=== PATIENT | female | born 1985 | race Caucasian/White ===

== ENCOUNTER → 2016-11-27 | Outpatient (CLI) | payer BC | END | disposition home or self-care (01) | LOC: C.PAPS 13:47 | PROVIDERS: ATTEND Obstetrics & Gynecology | DX: Z01.419 Encounter for gynecological examination (general) (routine) without abnormal findings (principal) ==

== ENCOUNTER → 2016-12-05 | Outpatient (CLI) | payer BC ==
--- NOTE | 2016-12-05 14:13 | MAMMOGRAPHY REPORT ---
ULTRASOUND OF LEFT BREAST: 12/05/2016 CLINICAL HISTORY: The patient reports that her physician felt a palpable left breast lump during a ro utine clinical exam. COMPARISON: No prior exams were available for comparison. TECHNIQUE: Real-time targeted ultrasound of the left breast was performed. FINDINGS: Real-time, high resolution targeted ultrasound was performed of the area of the palpable l ump pointed out by the patient, in the left breast at 11:30 periareolar region. Sonographically norm al tissue is seen in this region, without evidence of a mass or other suspicious sonographic abnormal ity. IMPRESSION: ACR BI-RADS CATEGORY 1: NEGATIVE No suspicious sonographic abnormality at the site of the palpable left breast lump pointed out by the patient. There is no sonographic evidence of malignancy. Recommend clinical follow-up for the palp able lump; any decision to biopsy should be based on clinical grounds. The patient was verbally notified of the results. Khadijah Petit M.D. ah/:12/05/2016 08:54:50 Attending Technologist: Angelina AGUIRRE(Jessee)(M), [facility] Senior Technical Support Engineer: Khadijah Petit MD, [facility] letter sent: Normal 1/2 BI-RADS Code: ACR BI-RADS Category 1: Negative
== END | disposition home or self-care (01) ==
LOC: C.MAMM 08:05
PROVIDERS: ATTEND Obstetrics & Gynecology
DX: N63 Unspecified lump in breast (principal)

== ENCOUNTER → 2017-03-27 | Outpatient (CLI) | payer BC ==
--- NOTE | 2017-03-28 14:34 | MAMMOGRAPHY REPORT ---
ULTRASOUND OF LEFT BREAST: 03/27/2017 CLINICAL HISTORY: The patient reports a new tender palpable lump in the left breast. The tenderness has decreased since her menstrual period. COMPARISON: Comparison is made to exam dated: 12/05/2016 ultrasound - [facility]. TECHNIQUE: Real-time targeted ultrasound of the left breast was performed. FINDINGS: Real-time, high-resolution targeted ultrasound was performed of the area of the palpable l ump pointed out by the patient, in the left breast at 6:00 approximately 3 cm from the nipple. Sonog raphically normal tissue is seen in this region, without evidence of a mass or other suspicious sonog raphic abnormality. IMPRESSION: ACR BI-RADS CATEGORY 1: NEGATIVE No suspicious sonographic abnormality at the site of the palpable lump in the left 6:00 breast pointe d out by the patient. There is no sonographic evidence of malignancy. Recommend clinical follow-up; any decision to biopsy should be based on clinical grounds. The patient was verbally notified of the results. Khadijah Petit M.D. ah/:03/27/2017 14:13:27 Casino Controller: Angelina CORONEL)(Lamin), [facility] letter sent: Normal 1/2 BI-RADS Code: ACR BI-RADS Category 1: Negative
== END | disposition home or self-care (01) ==
LOC: C.MAMM 13:41
PROVIDERS: ATTEND Obstetrics & Gynecology
DX: N63.20 Unspecified lump in the left breast, unspecified quadrant (principal)

== ENCOUNTER 2018-11-03 07:35 | Inpatient (IN) ==
[2018-11-03] MEDS ORDERED: PENICILLIN G POTASSIUM 6 MU in DEXTROSE 5% 250 ML IV STA (07:48)
[2018-11-03] MEDS ORDERED: OXYTOCIN 30 UNITS/500 ML BAG IV PRN ×3 (07:48→20:45)
[2018-11-03 08:18] LABS: Hematocrit (blood only) 40.2 % (37-47); Hemoglobin 13.9 g/dL (12.0-16.0); Mean Corpuscular Volume 86.8 fL (80-100); Platelet Count 220 K/uL (130-400); RDW Coefficient of Variation 15.3 % (11.5-14.5); Red Blood Count 4.63 M/uL (4.2-5.4); White Blood Count 10.37 K/uL (4.8-10.8)
[2018-11-03 08:25] LABS: Mean Corpuscular Hgb Conc 34.6 g/dL (32-36)
[2018-11-03] MEDS: LACTATED RINGER'S 1,000 ML IV PRN ×2 (08:32→14:37)
--- NOTE | 2018-11-03 08:53 | History & Physical Report ---
Date of Service November 03, 2018 Assessment & Plan (1) Encounter for induction of labor: Scheduled induction. Monitor status of mother and baby, consider epidural depending on cervical progress and mother's pain control. Category 1 heart tracing. Receiving pitocin drip, currently running at 6mU. Receiving penicillinG IV for GBS prophylaxis. Present on Admission?: Yes (2) Post term , 41 weeks: History of Present Illness Primary Care Provider: 33 yo F here at 41 weeks and 1 day verified by ultrasound on 03/07/18. Here for induction of labor for post-term . Has been attending all OB appointments, no issues or complications with thus far. Takes vitamins and iron supplementation. Took benadryl and tylenol for sleep last night. Contractions: Was experiencing intermittent cramping abdominal pain last night from 10:30 pm to 5 am. Fluid Loss: no rupture of fluids or vaginal blood loss Movement: frequent, good movement Labs Blood type: A+ Antibody screen: negative H.9 Hct: 40.2% WBC: 10.37 Plt: 220 Rubella: Immune VDRL/RPR: nonreactive HBsAg: negative Chlamydia: negative Gonorrhea: negative 1 hr GTT: negative Cell Free DNA screen: negative GBS: Positive urine Allergies Allergy/AdvReac Type Severity Reaction Status Date / Time No Known Allergies Allergy Verified 11/03/18 07:56 Home Medications Home Medications Medication Instructions Recorded Confirmed Type ferrous sulfate [Iron (ferrous 325 mg PO DAILY 11/03/18 11/03/18 History sulfate)] vit-iron fum-folic ac 1 tab PO DAILY 11/03/18 11/03/18 History [ Vitamin] Patient History Medical History H/O wisdom tooth extraction Surgical History History of surgery on arm Social History Preferred Language: Divehi Communication Ability: Effective Beliefs That Will Affect Care: None marital status: Current Living Situation: Spouse Other Information That Helps Us Care for You: No Feels Safe at Home: Yes Smoking Status: Never smoker Hx Alcohol Use: No Hx Substance Use: No OB History G1: first term AFTERSCHOOL History No hx abnormal paps, no hx STDs Review of Systems no chills and no body aches no cough shortness of breath no chest pain and no lightheadedness + abdominal pain and + diarrhea/loose stools (2 movements today, nonbloody); no heartburn, no nausea, no vomiting and no constipation Physical Exam Constitutional: WD/WN, vitals as above resting comfortably in bed, appears visibly anxious about labor Eyes: PERRL, conjunctivae normal, anicteric sclerae Respiratory: normal respiratory effort, lungs clear to auscultation no respiratory distress and no labored breathing Auscultation: no diminished lung sounds Cardiovascular: RRR, no murmur, no edema Gastrointestinal (Abdomen): Inspection/Auscultation: + abdomen distended Genitourinary: OB Exam Abdomen: + regular contractions Manual OB Exam: + cervical dilation 4 cm, + cervical effacement 80% and + station -2 OB Exam Monitor Tracing: + external FHT monitor used and + normal FHT variability; no early decelerations present Cervical exam per Dr. Perkins: 4cm/80% effacement/-2 station Results & Data Vital Signs (Past 12 Hours) Vital Signs Temp Pulse Resp BP 11/03/18 07:57 36.7 C 20 11/03/18 07:55 36.7 C 20 11/03/18 07:53 86 115/68 Monitoring External Monitor Moderate variability, accelerations present, no decels, baseline HR of 135-140 Tocodynamometer Contractions every 2-4 minutes Supervising Physician Co-Signing Physician Notes Resident Physician Supervision Note: I interviewed and examined the patient. Discussed with Dr. Salcedo and agree with findings and plan as documented in the note. Any exceptions or clarifications are listed here: Patient seen and evaluated with PGY-1. for postdates induction. uncomplicated. Plan pitocin induction, arom when indicated. Pain management per patient. Fetus category one. Anticipate . Documented By: Jackie Perkins MD, FACOG
[2018-11-03] MEDS: PENICILLIN G POTASSIUM 3 MU in DEXTROSE 5% 100 ML IV PRN ×2 (12:30→16:27)
[2018-11-03] MEDS ORDERED: ePHEDrine sulfate 50 MG/ML AMP ONE (13:44)
[2018-11-03] MEDS ORDERED: BUPIVACAINE 0.25% 30 ML VIAL ONE (13:44)
[2018-11-03] MEDS ORDERED: fentaNYL citrate 100 MCG/2 ML VIAL ONE (13:44)
[2018-11-03] MEDS ORDERED: fentaNYL 2MCG/ML ROPIV 1.25MG/ML 100 ML BAG EPI ONE (13:45)
[2018-11-03] MEDS ORDERED: ONDANSETRON INJ 2 MG/ML 2 ML VIAL IV PRN (14:00)
[2018-11-03] MEDS ORDERED: NALOXONE HCL 1 MG in SODIUM CHLORIDE 0.9% 1000ML 1,000 ML IV PRN (14:00)
[2018-11-03] MEDS ORDERED: NALOXONE HCL 0.4 MG/1 ML VIAL/CARP IV PRN (14:00)
[2018-11-03] MEDS ORDERED: DiphenhydrAMINE HCL 50 MG/ML VIAL IV PRN (14:00)
[2018-11-03] MEDS ORDERED: fentaNYL 2MCG/ML ROPIV 1.25MG/ML 100 ML BAG EPI PRN (14:00)
[2018-11-03] MEDS ORDERED: ePHEDrine sulfate 50 MG/ML AMP IV PRN (14:00)
[2018-11-03] MEDS ORDERED: NALBUPHINE HCL INJ 10 MG/ML AMP IV PRN (14:00)
--- NOTE | 2018-11-03 14:24 | Anesthesiology Consultation ---
Date of Service November 03, 2018 Assessment & Plan Chart Review Chart Review: Patient NOT seen in Pre Admission Testing and Acceptable Risk for Labor Epidural Consults Requested none ASA ASA2 Proposed Anesthesia Anesthesia Type: Labor Epidural and CSE Risk / Benefits Reviewed With: PT / POA / Parent / Guardian, Accepts Plan and Informed Consent Obtained History Height/Weight Height: 5 ft 8 in Weight: 67.857 kg Allergies Allergy/AdvReac Type Severity Reaction Status Date / Time No Known Allergies Allergy Verified 11/03/18 07:56 Medications Home Medications Medication Instructions Recorded Confirmed Last Taken ferrous sulfate [Iron (ferrous 325 mg PO DAILY 11/03/18 11/03/18 11/01/18 20:00 sulfate)] vit-iron fum-folic ac 1 tab PO DAILY 11/03/18 11/03/18 11/01/18 20:00 [ Vitamin] Active Medications Generic Name Dose Route Start Last Admin Trade Name Freq PRN Reason Stop Dose Admin Lactated Ringer's 1,000 mls @ 125 mls/hr 11/03/18 07:48 11/03/18 13:43 Lr IV 11/05/18 07:47 999 mls/hr .Q8H PRN Infusion L&D Protocol Protocol Oxytocin 30 units in 500 mls @ 8 mls/hr 11/03/18 07:48 11/03/18 11:35 Pitocin IV 11/05/18 07:47 0.48 units/hr .Q24H PRN 8 mls/hr Labor Induction/Augmentation Titration Protocol 0.48 UNITS/HR Penicillin G Potassium 3 mu/ 106 mls @ 100 mls/hr 11/03/18 07:48 11/03/18 12:30 Dextrose IV 11/13/18 07:47 100 mls/hr Q4H PRN Administration Give until delivery NPO Date Last Intake of Fluids: 11/03/18 Time Last Intake of Fluids: 14:00 Date Last Intake of Solids: 11/03/18 Time Last Intake of Solids: 07:00 Past Medical History Medical History H/O wisdom tooth extraction Exercise / Class Metabolic Activity II 4-5 Yardwork/Stairs/Walk up hill Past Surgical History Surgical History History of surgery on arm Past Anesthesia History No Hx of Anesthesia Complications and No Family Hx of Anesthesia Complications History of PONV No Hx of PONV and Hx of Motion Sickness Social History Smoking Status: Never smoker Hx Alcohol Use: No Hx Substance Use: No Review of Systems no chest pain or sob Physical Exam Vital Signs Last Vital Signs Temp 36.7 C 11/03/18 11:35 Pulse 82 11/03/18 13:42 Resp 20 11/03/18 11:35 BP 114/83 11/03/18 13:42 ENMT Mouth: no TMJ abnormality Thyromental Distance: > or= 3.5 Finger Breadths Mallampati Class: II Neck normal visual inspection Respiratory normal respiratory effort Auscultation: lungs clear to auscultation bilaterally Cardiovascular Rate/Rhythm: regular rate and regular rhythm Musculoskeletal Spine: normal cervical ROM Neurologic moves all extremities Psychiatric Orientation: alert and oriented x 3 Testing Laboratory Results 11/03/18 08:08
--- NOTE | 2018-11-03 18:09 | Labor Progress Brief Note ---
Date of Service November 03, 2018 Subjective Reason For Note: Routine Evaluation Assessment & Plan (1) Encounter for induction of labor: Progressing well Cat 1 (2) Post term , 41 weeks: Physical Exam Genitourinary: OB Exam Abdomen: + vertex Manual OB Exam: + cervical dilation 10 cm, + cervical effacement 100% and + station + 2 OB Exam Monitor Tracing: + external FHT monitor used, + external uterine monitor used and + category I Results & Data Vital Signs (Past 12 Hours) Vital Signs Temp Pulse Resp BP Pulse Ox 11/03/18 18:04 70 100 11/03/18 17:59 83 100 11/03/18 17:56 74 106/68 11/03/18 17:54 73 100 11/03/18 17:49 90 100 11/03/18 17:44 68 100 11/03/18 17:41 63 115/74 11/03/18 17:39 66 100 11/03/18 17:34 68 99 11/03/18 17:29 91 H 98 11/03/18 17:25 68 108/73 11/03/18 17:24 72 98 11/03/18 17:19 75 100 11/03/18 17:14 72 98 11/03/18 17:10 111 H 91/50 L 11/03/18 17:09 89 100 11/03/18 17:04 66 99 11/03/18 17:01 36.8 C 16 11/03/18 16:59 80 100 11/03/18 16:56 60 113/68 11/03/18 16:54 64 98 11/03/18 16:49 67 100 11/03/18 16:44 68 100 11/03/18 16:41 64 118/77 11/03/18 16:39 67 100 11/03/18 16:34 83 100 11/03/18 16:29 67 100 11/03/18 16:27 75 109/70 11/03/18 16:24 71 100 11/03/18 16:19 72 100 11/03/18 16:14 73 100 11/03/18 16:10 66 111/74 11/03/18 16:09 74 98 11/03/18 16:04 81 99 11/03/18 15:59 79 100 11/03/18 15:55 71 104/60 11/03/18 15:54 76 100 11/03/18 15:49 77 98 11/03/18 15:44 61 98 11/03/18 15:42 60 91/54 L 11/03/18 15:39 73 98 11/03/18 15:34 64 98 11/03/18 15:29 61 96 11/03/18 15:27 65 93/51 L 11/03/18 15:24 79 100 11/03/18 15:19 81 100 11/03/18 15:14 69 100 11/03/18 15:11 36.8 C 16 11/03/18 15:09 75 100 11/03/18 15:07 84 96/57 L 11/03/18 15:04 80 100 11/03/18 15:03 75 93/50 L 11/03/18 15:00 78 95/50 L 11/03/18 14:59 83 99 11/03/18 14:54 76 99 11/03/18 14:53 79 112/59 L 11/03/18 14:49 74 100 11/03/18 14:45 83 94/53 L 11/03/18 14:44 82 99 11/03/18 14:43 80 103/54 L 11/03/18 14:42 36.6 C 74 20 96/51 L 11/03/18 14:39 71 99 11/03/18 14:34 98 H 121/74 95 11/03/18 14:29 96 H 100 11/03/18 14:28 90 121/74 11/03/18 13:42 82 114/83 11/03/18 12:28 63 114/69 11/03/18 12:27 62 108/60 11/03/18 11:35 36.7 C 76 20 105/58 L 11/03/18 09:59 76 101/60 11/03/18 08:55 95 H 100/64 11/03/18 07:57 36.7 C 20 11/03/18 07:55 36.7 C 20 11/03/18 07:53 86 115/68
[2018-11-03] MEDS ORDERED: BENZOCAINE 20% AER SPR 82.5 GM CAN EXT PRN (20:45)
[2018-11-03] MEDS ORDERED: DIPHTHERIA/TETANUS/PERTUSSIS 0.5 ML SYR/VIAL IM ONE (20:45)
[2018-11-03] MEDS ORDERED: BISACODYL 10 MG SUPP PR PRN (20:45)
[2018-11-03] MEDS ORDERED: SUPERCREAM 0.870% 15 GM JAR EXT PRN (20:45)
[2018-11-03] MEDS ORDERED: HYDROCORTISONE ACETATE 25 MG SUPP PR PRN (20:45)
--- NOTE | 2018-11-03 22:08 | Delivery Summary ---
DATE OF OPERATION: 11/03/2018 DATE OF SERVICE: 11/03/2018 PROCEDURE: Normal spontaneous vaginal delivery with first degree perineal laceration repair. SURGEON: Xander Waller MD PREOPERATIVE DIAGNOSIS: Single intrauterine at term. POSTOPERATIVE DIAGNOSIS: Single intrauterine at term, status post delivery. ESTIMATED BLOOD LOSS: 400 mL. DRAINS: Straight cath after delivery of the placenta. FLUIDS: Continuous lactated ringer. URINE OUTPUT: 400 mL via straight catheterization. COMPLICATIONS: None. FINDINGS: Viable male infant with weight pending and Apgars of 8 and 9 at 1 and 5 minutes respectively. INDICATIONS: Ms. Fernandez is a 33-year-old G1, P0, admitted at 41+ weeks gestational age for induction of labor secondary to late term . At time of presentation, the patient was found to be 4 cm dilated, 80% effaced, -2 station. She was started on oxytocin per regular protocol, underwent artificial rupture of membranes for clear fluid and received an epidural for anesthesia. The patient continued to progress in labor to complete-complete +2, at which time she felt the urge to push. DESCRIPTION OF PROCEDURE: The patient progressed to 10 cm dilated, 100% effaced, +2 station, pushed over intact perineum with epidural anesthesia and delivered a viable male infant with weight and Apgars as noted above. Head of the delivered in NENA position, rest into right transverse. No nuchal cord was present. Body and shoulders quickly followed. was noticed to be vigorous upon delivery, was delivered to maternal abdomen. A 1-minute delayed cord clamping was initiated, after which the cord was double clamped and cut. Cord blood was then obtained. Attention was then turned to deliver the placenta, which was delivered intact, 3-vessel cord, gentle cord traction. On inspection of perineum, vagina, and cervix, there was noted to be a first degree perineal laceration which was repaired with 3-0 Vicryl in a continuous running stitch. Needle, sponge and instrument counts were correct at the completion of the case. Both mother and were stable in the immediate post-delivery. I attest to the content of the Intraoperative Record and any orders documented therein. Any exception s are noted below.
[2018-11-03] MEDS: IBUPROFEN 600 MG TAB PO PRN (23:31)
[2018-11-03 23:39] LABS: Hematocrit (blood only) 35.1 % (37-47); Hemoglobin 12.2 g/dL (12.0-16.0)
[2018-11-04] MEDS ORDERED: ZOLPIDEM TARTRATE 5 MG TAB PO PRN (01:10)
[2018-11-04] MEDS: ACETAMINOPHEN 325 MG TAB PO PRN ×2 (01:22→16:49)
[2018-11-04 06:05] LABS: Hematocrit (blood only) 32.1 % (37-47); Hemoglobin 11.1 g/dL (12.0-16.0)
--- NOTE | 2018-11-04 07:23 | Obstetrical Progress Note ---
Date of Service <Sarah Salcedo MD - Last Filed: 11/04/18 07:30> November 04, 2018 Assessment & Plan <Sarah Salcedo MD - Last Filed: 11/04/18 07:30> (1) Post term , 41 weeks: continue monitoring vitals and pain, advance mobility as tolerated. Stool softener ordered if patient thinks that will help with passing gas/alleviating constipation. Motrin and Tylenol for pain control, aim to keep pain between 2 and 5. Subjective <Sarah Salcedo MD - Last Filed: 11/04/18 07:30> Ambulation: limited ambulation Voiding: no voiding problems Passing Gas:: No Diet Tolerance:: regular diet Lochia:: Small Feeding Type:: breast feeding Current Pain Level(1-10): 10 (localizes pain to rectum) Constitutional: + sweats; no fever and no chills No shortness of breath, exhalation exacerbates rectal pain Cardiovascular: no chest pain Breast: no breast pain Gastrointestinal: + constipation (is normally constipated, wonders if this is cause of pain) and + diarrhea/loose stools (had loose stools yesterday); no abdominal pain, no nausea and no vomiting Genitourinary (female): no dysuria and no difficulty urinating Musculoskeletal: + back pain and + muscle weakness Psychiatric: + anxiety Physical Exam <Sarah Salcedo MD - Last Filed: 11/04/18 07:30> Constitutional well developed, well nourished and + thin Respiratory normal respiratory effort, lungs clear to auscultation normal respiratory effort; no respiratory distress and no labored breathing Auscultation: no diminished lung sounds, no crackles, no rales, no rhonchi and no wheezes Cardiovascular RRR, no murmur, no edema Extremities: no calf tenderness and no pedal edema Gastrointestinal (Abdomen) Inspection/Auscultation: + abdomen distended and normal bowel sounds (bowel sounds hyperactive) Percussion/Palpation: abdomen soft; abdomen nontender Genitourinary Speculum/Bimanual Exam: uterus nontender uterus firm, palpable below umbilicus Results & Data <Sarah Salcedo MD - Last Filed: 11/04/18 07:30> Vital Signs (Past 12 Hours) Vital Signs Temp Pulse Pulse Resp BP BP Pulse Ox 11/04/18 04:40 36.6 C 76 16 101/63 11/03/18 23:10 36.8 C 80 18 128/82 11/03/18 22:40 73 117/67 11/03/18 22:25 85 119/72 11/03/18 22:10 78 113/70 11/03/18 21:55 75 116/68 11/03/18 21:40 78 18 116/68 11/03/18 21:26 85 16 117/70 11/03/18 21:10 94 H 16 119/66 11/03/18 20:55 79 16 116/57 L 11/03/18 20:38 91 H 99 11/03/18 20:33 79 100 11/03/18 20:28 82 100 11/03/18 20:25 75 20 108/59 L 11/03/18 20:23 85 99 11/03/18 20:18 87 100 11/03/18 20:13 88 99 11/03/18 20:10 100 H 111/65 11/03/18 20:08 89 100 11/03/18 20:04 81 88 L 11/03/18 20:03 81 100 11/03/18 19:58 90 85 L 11/03/18 19:56 100 H 115/64 11/03/18 19:53 80 100 11/03/18 19:48 97 H 97 11/03/18 19:42 83 151/63 H 99 11/03/18 19:41 89 91 11/03/18 19:37 96 H 100 11/03/18 19:31 92 H 99 11/03/18 19:28 89 85 L 11/03/18 19:26 86 97 11/03/18 19:21 95 H 100 <Xander Waller MD - Last Filed: 11/05/18 13:16> Co-Signing Physician Notes Patient seen and evaluated and agree with the above findings and plan
[2018-11-04] MEDS: IBUPROFEN 600 MG TAB PO PRN ×3 (07:33→20:01)
--- NOTE | 2018-11-04 08:58 | Anesthesia Procedure Note ---
Date of Service November 04, 2018 Anesthesia Post Epidural Note Vital Signs Vital Signs: Temp Pulse Resp BP Pulse Ox 36.6 C 76 16 101/63 99 11/04/18 04:40 11/04/18 04:40 11/04/18 04:40 11/04/18 04:40 11/03/18 20:38 Pain Intensity Abdomen: Pain Intensity: 0 Notes Mental Status: alert / awake / arousable Patient Amnestic to Procedure: Yes Nausea / Vomiting: adequately controlled Pain: adequately controlled Airway Patency, RR, SpO2: stable & adequate BP & HR: stable & adequate Hydration State: stable & adequate Anesthetic Complications: no major complications apparent and Pt Satisfied with anesthetic care
[2018-11-04] MEDS: DOCUSATE SODIUM 100 MG CAP PO SCH ×2 (13:07→20:02)
[2018-11-04] MEDS: PRENATAL VITAMIN 1 TAB PO SCH (13:07)
[2018-11-04] MEDS ORDERED: BISACODYL 5 MG TABEC PO SCH (20:00)
[2018-11-05] MEDS: ACETAMINOPHEN 325 MG TAB PO PRN (06:28)
--- NOTE | 2018-11-05 07:43 | Obstetrical Progress Note ---
Date of Service November 05, 2018 Assessment & Plan (1) Post term , 41 weeks: continue monitoring vitals and pain. Improved mobility today, able to walk around. Stool softener ordered if patient thinks that will help with passing gas/alleviating constipation. Motrin and Tylenol for pain control, aim to keep pain between 2 and 5. Plan to discharge later today. Subjective Constitutional: + body aches; no fever and no chills Respiratory: no cough No shortness of breath Cardiovascular: no chest pain, no edema and no calf pain Breast: no breast pain Gastrointestinal: no abdominal pain, no nausea and no vomiting No bowel movement yet, has passed gas Genitourinary (male): + difficulty urinating (had frye in overnight, removing this morning) Musculoskeletal: + back pain and + muscle weakness Anxiety much better control today, mood much improved Physical Exam Constitutional WD/WN, vitals as above well developed, well nourished and + thin Eyes PERRL, conjunctivae normal, anicteric sclerae Respiratory normal respiratory effort, lungs clear to auscultation normal respiratory effort; no respiratory distress and no labored breathing Auscultation: no diminished lung sounds, no crackles, no rales, no rhonchi and no wheezes Cardiovascular RRR, no murmur, no edema Extremities: no calf tenderness and no pedal edema Gastrointestinal (Abdomen) Inspection/Auscultation: + abdomen distended and normal bowel sounds (bowel soun ds hyperactive) Percussion/Palpation: abdomen soft; abdomen nontender Genitourinary Speculum/Bimanual Exam: + uterus enlarged (firm, palpable at level of umbilicus) Results & Data Vital Signs (Past 12 Hours) Vital Signs Temp Pulse Resp BP Pulse Ox 11/04/18 23:15 36.5 C 76 20 113/74 98 11/04/18 19:45 36.6 C 89 20 101/58 L 98
[2018-11-05] MEDS: PRENATAL VITAMIN 1 TAB PO SCH (07:48)
[2018-11-05] MEDS: DOCUSATE SODIUM 100 MG CAP PO SCH (07:48)
== END 2018-11-05 15:20 | disposition home or self-care (01) | DRG 807 ==
LOC: 4S1 07:35 → 4S2 23:08